=== PATIENT | female | born 1980 | race Caucasian/White ===

== ENCOUNTER → 2016-11-29 | Outpatient (CLI) | payer MEDICAID ==
[~2016-11-29] MED LIST: ACET-1600 PO; ALBU1.25; CYCL-259; HYDR1TAB12; LORA5TAB4; ONDA4TAB7 PO; PREN1TAB56; RANI150T8 PO; SENN8.6T98
== END | disposition home or self-care (01) ==
LOC: CFH 14:04
PROVIDERS: ATTEND Anesthesiology
DX: M48.06 Spinal stenosis, lumbar region (principal); M54.12 Radiculopathy, cervical region; M47.892 Other spondylosis, cervical region; M46.02 Spinal enthesopathy, cervical region; M47.896 Other spondylosis, lumbar region; M51.26 Other intervertebral disc displacement, lumbar region
CPT/HCPCS: 72141; 72148

== ENCOUNTER 2019-02-15 22:36 | Emergency (ER) | payer MEDICAID ==
[~2019-02-15] VITALS: Ht 172.7 cm; Wt 106.9 kg
[~2019-02-15 22:36] MED LIST changes: -HYDR1TAB12; +HYDR1TAB13; +RANI150T23 PO; -RANI150T8 PO
[2019-02-15] MEDS ORDERED: ONDANSETRON ODT 4 MG PO ONE (23:00)
[2019-02-15] MEDS ORDERED: HYDROcodone/APAP 5/325 TABLET PO ONE (23:00)
--- NOTE | 2019-02-15 23:00 | NUR ---
PT PRESENTING TO ER FOR BILATERAL CALF SWELLING, WORSE IN LEFT THAN RIGHT AND PAIN. PT SEEN AT TODAY FOR UTI, STATES BLOOD IN URINE WITH LOWER ABD AND BACK PAIN. GIVEN A SHOT OF SOME SORT AND SCRIPT FOR ABX TODAY BUT WAS TOLD TO BE SEEN FOR DVT R/O. UA COLLECTED AND SENT TO LAB. FAMILY AT BEDSIDE. ORDERS RECEIVED. CALL LIGHT WITHIN REACH. REPORT GIVEN TO GAETANO GUNDERSON
[2019-02-15] MEDS ORDERED: ONDANSETRON ODT 4 MG ONE (23:04)
[2019-02-15] MEDS ORDERED: HYDROcodone/APAP 5/325 TABLET ONE (23:04)
--- NOTE | 2019-02-15 23:08 | NUR ---
PT MEDICATED PER MAR FOR PAIN AND NAUSEA. PT URINE COLLECTED AND SENT TO LAB AT THIS TIME. PT PROVIDED WARM BLANKET. PT HAS CALL LIGHT WITHIN REACH AND DENIES ANY OTHER NEEDS AT THIS TIME.
[2019-02-15 23:23] LABS: HCG UR SG 1.025 (1.003-1.030); MICROSCOPIC NOT IND
[2019-02-15 23:25] LABS: BASOPHILS # (AUTO) 0.04 x10^3/uL (0-0.1); BASOPHILS % (AUTO) 0 % (0-1); EOSINOPHILS # (AUTO) 0.25 x10^3/uL (0-0.4); EOSINOPHILS % (AUTO) 2 % (1-7); LYMPHOCYTES # (AUTO) 2.65 x10^3/uL (1-3.4); LYMPHOCYTES % (AUTO) 25 % (22-44); MD NO; MEAN CORPUSCULAR HEMOGLOBIN 28.2 pg (27.0-34.8); MEAN CORPUSCULAR HGB CONC 32.8 g/dL (32.4-35.8); MEAN CORPUSCULAR VOLUME 85.8 fL (80-100); MEAN PLATELET VOLUME 9.4 fL (7.4-10.4); MONOCYTES # (AUTO) 0.54 x10^3/uL (0.2-0.8); MONOCYTES % (AUTO) 5 % (2-9); NEUTROPHILS # (AUTO) 7.25 x10^3/uL (1.8-6.8); NEUTROPHILS % (AUTO) 68 % (42-75); PLATELET COUNT 276 x10^3/uL (130-400); RED BLOOD COUNT 4.68 x10^6/uL (3.82-5.3)
[2019-02-15 23:35] LABS: ALANINE AMINOTRANSFERASE 19 U/L (12-78); ALBUMIN 3.4 g/dL (3.4-5.0); ANION GAP 5 mmol/L (5-15); CALCIUM 8.5 mg/dL (8.5-10.1); CHLORIDE 111 mmol/L (98-107); CREATININE 0.76 mg/dL (0.55-1.02)
[2019-02-15 23:36] LABS: CULTURE INDICATED? NO
[2019-02-15 23:39] LABS: ALKALINE PHOSPHATASE 69 U/L (45-117); BILIRUBIN,TOTAL 0.2 mg/dL (0.2-1.0); TOTAL PROTEIN 7.1 g/dL (6.4-8.2)
--- NOTE | 2019-02-16 00:15 | NUR ---
PT IN [place] AT THIS TIME; [place]. PT DENIES ANY NEEDS AT THIS TIME. PT HAS CALL LIGHT WITHIN REACH.
[2019-02-16 01:19] VITALS: BP 110/65
== END 2019-02-16 01:21 | disposition home or self-care (01) ==
LOC: ED 02-16 00:10
DX: R60.0 Localized edema (principal); F17.200 Nicotine dependence, unspecified, uncomplicated; J45.909 Unspecified asthma, uncomplicated
CPT/HCPCS: 36415; 80053; 81003; 81025; 83880; 85025; 93970; 99284; Q0162